=== PATIENT | female | born 2005 | race Caucasian/White ===

== ENCOUNTER 2025-04-10 11:09 | Emergency (ER) | payer MEDICAID, OTHER ==
[~2025-04-10] VITALS: Ht 160 cm; Wt 98.0 kg
[~2025-04-10 11:09] MED LIST: ALBUTEROL INH; MOTRIN
[2025-04-10 11:16] VITALS: O2SAT 99
[2025-04-10] MEDS ORDERED: DEXAMETHASONE 1 MG/ML ORAL SYR PO ONE (11:45)
[2025-04-10] MEDS: IBUPROFEN 600MG TABLET PO ONE (11:49)
[2025-04-10] MEDS: DEXAMETHASONE 4MG TABLET PO NR (12:14)
[2025-04-10 14:14] LABS: INFLUENZA TYPE A Presumptive Negative (Pres. Neg.)
[2025-04-10 14:15] LABS: INFLUENZA TYPE B Presumptive Negative (Pres. Neg.); RESPIRATORY SYNCYTIAL VIRUS Not Detected (Not Detectd)
[2025-04-10] MEDS ORDERED: BENZ100C86 MT (14:31)
[2025-04-10] MEDS ORDERED: ALBU18HF2 IH (14:31)
[2025-04-10] MEDS ORDERED: IBUP-1455 MT (14:31)
[2025-04-10 14:48] VITALS: BP 111/68; PULSE 80; RESP 15; TEMP 36.9; O2SAT 99
== END 2025-04-10 14:50 | disposition home or self-care (01) ==
LOC: ER 11:09
DX: J06.9 Acute upper respiratory infection, unspecified (principal); B97.89 Other viral agents as the cause of diseases classified elsewhere; J45.909 Unspecified asthma, uncomplicated; Z20.822 Contact with and (suspected) exposure to COVID-19
CPT/HCPCS: 99283; 87426; 87430; 87420; 87070; 87804 ×2; J8540